=== PATIENT | male | born 1970 | race Caucasian/White ===

== ENCOUNTER 2020-08-24 16:50 | Emergency (ER) | payer SELFPAY ==
[~2020-08-24] VITALS: Ht 180.3 cm; Wt 100.7 kg
[2020-08-24 16:58] VITALS: BP 125/74
[2020-08-24 18:00] VITALS: BP 121/69
== END 2020-08-24 18:00 | disposition home or self-care (01) ==
LOC: MED 16:50
DX: F41.0 Panic disorder [episodic paroxysmal anxiety] (principal); F31.9 Bipolar disorder, unspecified; J44.9 Chronic obstructive pulmonary disease, unspecified; I10 Essential (primary) hypertension; F17.210 Nicotine dependence, cigarettes, uncomplicated; Z89.512 Acquired absence of left leg below knee
CPT/HCPCS: 99283